=== PATIENT | female | born 1995 | race Caucasian/White ===

== ENCOUNTER 2018-12-11 21:35 | Emergency (ER) | payer OTHER ==
[~2018-12-11] VITALS: Ht 157.5 cm; Wt 59.0 kg
[2018-12-11] MEDS ORDERED: WELLBUTRIN (21:55)
[2018-12-11] MEDS ORDERED: ADDERALL 30 MG30 MG PO (21:56)
[2018-12-11] MEDS ORDERED: ADDERALL 20 MG20 MG PO (21:56)
[2018-12-11] MEDS ORDERED: AUGMENTIN 875-1 EACH PO (22:05)
[2018-12-11] MEDS ORDERED: MEDROLDOSEPACK PO (22:05)
[2018-12-11 22:18] VITALS: BP 119/76
== END 2018-12-11 22:18 | disposition home or self-care (01) ==
LOC: M.ERS 21:35
DX: J32.1 Chronic frontal sinusitis (principal); Z88.8 Allergy status to other drugs, medicaments and biological substances

== ENCOUNTER 2020-09-21 00:03 | Emergency (ER) | payer OTHER ==
[~2020-09-21] VITALS: Ht 157.5 cm; Wt 77.1 kg
[~2020-09-21 00:03] MED LIST: ADDERALL 20 MG20 MG PO; ADDERALL 30 MG30 MG PO; AUGMENTIN 875-1 EACH PO; MEDROLDOSEPACK PO; WELLBUTRIN
[2020-09-21] MEDS ORDERED: PROZAC20 M1 PO (00:22)
[2020-09-21] MEDS ORDERED: DEPO-PROVE150 MG/11 IM (00:24)
[2020-09-21 00:25] VITALS: BP 133/86
[2020-09-21] MEDS ORDERED: DOXYCYCLINE 10100 MG PO (00:41)
== END 2020-09-21 00:46 | disposition home or self-care (01) ==
LOC: M.ERS 00:03
DX: L08.9 Local infection of the skin and subcutaneous tissue, unspecified (principal); R23.4 Changes in skin texture; Z86.711 Personal history of pulmonary embolism; Z79.899 Other long term (current) drug therapy; Z88.8 Allergy status to other drugs, medicaments and biological substances

== ENCOUNTER 2021-05-16 19:46 | Emergency (ER) | payer OTHER ==
[~2021-05-16] VITALS: Ht 157.5 cm; Wt 74.8 kg
[~2021-05-16 19:46] MED LIST changes: +DEPO-PROVE150 MG/11 IM; +DOXYCYCLINE 10100 MG PO; +PROZAC20 M1 PO
[2021-05-16 21:03] VITALS: BP 136/93
== END 2021-05-16 21:04 | disposition home or self-care (01) ==
LOC: M.ERS 19:46
DX: S01.511A Laceration without foreign body of lip, initial encounter (principal); Z86.711 Personal history of pulmonary embolism; Z79.899 Other long term (current) drug therapy; Z91.048 Other nonmedicinal substance allergy status; W22.8XXA Striking against or struck by other objects, initial encounter; Y93.45 Activity, cheerleading; Y92.89 Other specified places as the place of occurrence of the external cause; Y99.8 Other external cause status